=== PATIENT | male | born 1980 | race African-American/Black ===

== ENCOUNTER 2017-05-15 13:50 | Emergency (ER) | payer MEDICAID ==
[~2017-05-15] VITALS: Ht 172.7 cm; Wt 68.0 kg
[2017-05-15 14:35] VITALS: BP 124/67
[2017-05-15 15:50] VITALS: BP 122/73
== END 2017-05-15 15:50 | disposition home or self-care (01) ==
LOC: MED 13:50
DX: M79.662 Pain in left lower leg (principal); M79.652 Pain in left thigh
CPT/HCPCS: 73590; 99284